=== PATIENT | male | born 1935 | race Caucasian/White ===

== ENCOUNTER → 2016-08-13 | Outpatient (CLI) | payer MEDICARE | LOC: HEART 5 09:13 → HEART CORB 09:13 | DX: R01.1 Cardiac murmur, unspecified (principal); R94.31 Abnormal electrocardiogram [ECG] [EKG]; R07.2 Precordial pain; I50.22 Chronic systolic (congestive) heart failure; E78.5 Hyperlipidemia, unspecified | CPT/HCPCS: 78452; 93306; A9502; J2785 ==

== ENCOUNTER → 2020-11-02 | Outpatient (CLI) | payer MEDICARE | LOC: ECHO 10-11 11:00 | DX: R01.1 Cardiac murmur, unspecified (principal); I08.3 Combined rheumatic disorders of mitral, aortic and tricuspid valves | CPT/HCPCS: ECHO; 93306 ==